=== PATIENT | male | born 1955 | race Caucasian/White ===

== ENCOUNTER 2016-08-31 05:36 | Day surgery (SDC) | payer OTHER ==
--- NOTE | 2016-08-30 13:08 | HP ---
DATE OF CLINIC: 08/18/2016 RALPH ESPOSITO : 1955 PLANNED PROCEDURE: Left Knee Arthroscopic Medial Meniscectomy and Debridement DATE OF PROCEDURE: August 31, 2016 SURGEON: Brendan Power M.D. PCP: Dr. Amanda Sprague HISTORY OF PRESENT ILLNESS Ralph Esposito is a 61 year old male. * Medication list reviewed with patient allergy list reviewed with patient. * Tried NSAIDS Ibuprofen PRN * Tried Physical Therapy [facility], was going once for 6 weeks, currently going every other week now * Tried Injections Cortisone 10/2015 Mr. Esposito is in today pre-operatively for his upcoming left knee arthroscopy with Dr. Power on 08/31/16. Patient presents in good spirits and is ready to proceed. He's had a recent left molar cavity which will require a root canal otherwise no recent illness, change in health, or prior surgical complications. His recent consult with Dr. Power follows: Patient is a 60-year-old male here for consultation with respect to his left knee. He was recently seen by Priyank for evaluation of left knee pain that began acutely in June. History is as follows: The patient twisted his knee and had onset of medial knee pain. He has kind of been dealing with the symptoms since that time. Currently over the last several months he has been having some symptoms where he feels like something flips inside the inner aspect of his knee and catches and has a pain and if he can get it to flip back then his symptoms dissipate. He is not having any significant instability, but does have sensation of distrust. He denies a history with regards to his left knee, but has had right knee symptoms in the past and has seen a Dane Kilpatrick P.A.-C. in 2010 for this. The patient is very active. He is recently retired. He spent many years bicycle commuting. He has now been active outdoors. He just he was doing some rafting down through the [place] and he is at a point in time where despite physical therapy and cortisone injection he is unable to really progress with is activity secondary to his knee pain. The patient has tried non-steroidal anti-inflammatories, ibuprofen. He has been to physical therapy going for a period of over six weeks. He did have per primary care doctors notes a pes anserine cortisone injection, which helped some of his symptoms for a brief period of time but they returned. It did not improve this catching and flipping sensation that he has deep within his knee. He did have an MRI scan on 03/01/16 that was available when Priyank saw him and is available for my review as well. This is consistent with a complex tear of the posterior horn of the medial meniscus. He also has chondromalacia of the patellofemoral joint. Given his persisting symptoms, he is interested in discussing definitive management options. Comorbidities include hypothyroidism. He is a non-smoker. CURRENT MEDICATION * Benadryl Allergy 25 MG Capsule as needed 0 days, 0 refills * Crestor 10 MG Tablet 1 once a day 0 days, 0 refills * [facility] Vitamin B12 1000 MCG Tablet 1 once a day 0 days, 0 refills * Famciclovir 125 MG Tablet 1 once a day 5 days, 0 refills * Levothyroxine Sodium 75 MCG Tablet 1 once a day 90 days, 0 refills * Pantothenic Acid 500 MG Tablet 1 once a day 0 days, 0 refills * Vitaline CoQ10 300 MG Wafer 2 once a day 0 days, 0 refills * Vitamin D3 1000 UNIT Capsule as directed 0 days, 0 refills PAST MEDICAL/SURGICAL HISTORY Reported: Medical: A previous fracture, Reported numbness due to carpal tunnel, Reported tingling due to carpal tunnel, 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 Surgical / Procedural: Prior surgery sinus rhinoplasty/turbo plasty early and Hernia repair July 1978. SOCIAL HISTORY Behavioral: Caffeine use and non-smoker never smoked. Smoking status: Never smoker. Alcohol: Alcohol during summer while on vacation and alcohol use. 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 ALLERGIES * Cats Reaction: Asthma/Shortness of Breath * [place] fruit Reaction: Skin Rashes/Hives, headache, throat burning * Dust Reaction: Asthma/Shortness of Breath * Grass Pollen Reaction: Asthma/Shortness of Breath * Nuts Reaction: Skin Rashes/Hives * Opium Alkaloids Reaction: not effective * penicillin Reaction: Skin Rashes/Hives * [place] Seeds Reaction: Skin Rashes/Hives, swelling of lips FAMILY HISTORY 2 children living Family medical history Mother and Father: Bleeding Disorders REVIEW OF SYSTEMS Systemic: No fever and no recent weight change. Head: No head symptoms. Cardiovascular: No cardiovascular symptoms. Pulmonary: No pulmonary symptoms. Gastrointestinal: Gastrointestinal symptoms GERD. Psychological: No psychological symptoms. Skin: No skin lesions and no rash. PHYSICAL FINDINGS * Vitals taken 08/18/2016 02:54 pm BP-Sitting R 114/70 mmHg 100 - 120/60 - 80 BP Cuff Size Regular Pulse Rate-Sitting 67 bpm 50 - 100 Temp-Oral 97.6 F 96 - 101 Height 69 in 64 - 74 Weight 201 lbs 123 - 215 Body Mass Index 29.7 kg/m2 Body Surface Area 2.07 m2 Pain Level 0 Ears, Nose, Throat: * ENT: normal. Lungs: * Clear to auscultation. Cardiovascular: Heart Rate and Rhythm: * Normal. Abdomen: * Normal. Neurological: Motor: * Dominant Hand = Right Hand. Patient is a well-developed, well-nourished male in no acute distress, normal-appearing mood and affect. He ambulates with a relatively symmetric, heel-to-toe gait. Left knee exam shows skin integrity to be well-preserved, no wounds, rashes or lesions. He does have trace effusion and popliteal fullness. Motion is 0-120 degrees with pain at maximum flexion. He is tender over the medial jointline reproducibly, NT laterally. He has medial pain with Hank's, no click or pop. He has no with patellar compression. NT in the medial retinaculum. NT in the anteromedial proximal tibia. Ligamentous exam is intact for cruciates and collaterals. Calf is soft and NT. Distal light touch sensation and motor function are grossly intact and symmetric. Pulses are palpable. Gentle rotation of the hip is non-irritable. Contralateral knee shows full non-irritable full motion with no periarticular tenderness. TESTS Imaging as above. ASSESSMENT * Acute complex tear of medial meniscus Medial meniscal tear, left knee, with patellar chondromalacia. THERAPY * Patient not eligible for fall risk assessment. PLAN * Arthroscopy of the knee with medial meniscectomy -Left with debridement Discussed with patient in detail the limitations, expectations as well as risks and possible complications of surgery including, but not limited to wound problems or infection, neurovascular injury, continued knee pain or dysfunction including the possibility of failure over time that may require additional operative or non-operative treatment. Patient also realizes the perioperative risks including risks associated with anesthesia and would like to proceed. A full PAR conference was held, questions and concerns addressed and informed consent was obtained. Patient will be sent from my office for completion of the preoperative workup. CARE TEAM Amanda Sprague MD Family Practice CC: Amanda Sprague MD [facility] RS/sg
[2016-08-31] MEDS ORDERED: IV START KIT ONE (06:09)
[2016-08-31] MEDS ORDERED: LACTATED RINGERS 1,000 ML ONE (06:09)
[2016-08-31] MEDS ORDERED: CLINDAMYCIN 900 MG PREMIX 100 ML IV PRN (06:15)
[2016-08-31] MEDS ORDERED: CLINDAMYCIN 900 MG PREMIX 50 ML IV ONE (06:26)
[2016-08-31] MEDS ORDERED: BUPIVACAINE 0.25% EPI PF 30 ML VIAL ONE (06:53)
[2016-08-31] MEDS ORDERED: MORPHINE SULFATE (DURAMORPH) 1 MG/ML 10ML AMP ONE (07:06)
[2016-08-31] MEDS ORDERED: ONDANSETRON 4 MG/2ML 2 ML VIAL ONE (07:12)
[2016-08-31] MEDS ORDERED: PROPOFOL 20 ML IV ONE (07:12)
[2016-08-31] MEDS ORDERED: DEXAMETHASONE SOD PHOS 4 MG/1 ML VIAL ONE (07:12)
[2016-08-31] MEDS ORDERED: EPHEDRINE SULFATE UD SYR 25 MG 25 MG/5 ML SYRINGE IV ONE (07:59)
[2016-08-31] MEDS ORDERED: HYDROMORPHONE HCL 1 MG/ML SYRINGE IV PRN ×2 (08:06→09:22)
[2016-08-31] MEDS ORDERED: ONDANSETRON 4 MG/2ML 2 ML VIAL IV PRN ×2 (08:06→09:22)
[2016-08-31] MEDS ORDERED: PROMETHAZINE HCL 25 MG/ML VIAL IM PRN (08:06)
[2016-08-31] MEDS ORDERED: NALOXONE HCL 0.4 MG/ML VIAL IV PRN (08:06)
[2016-08-31] MEDS ORDERED: ATROPINE SULFATE 0.4 MG/1 ML VIAL IV PRN (08:06)
[2016-08-31] MEDS ORDERED: LACTATED RINGERS 1,000 ML IV SCH (08:15)
[2016-08-31] MEDS ORDERED: KETOROLAC TROMETHAMINE 30 MG/ML 1 ML VIAL ONE (08:28)
--- NOTE | 2016-08-31 08:47 | PCMBPN ---
Brief Post Op Note: Date of Procedure: 08/31/16 Preoperative Diagnosis: left knee MMT chondromalacia left knee Postoperative Diagnosis: 1. [Same] Procedure: scope/MM Surgeon: Brendan Power MD Anesthesia: general ([facility]) Condition: stable to PAR Complications: none IV Fluids: per anesthesia Estimated Blood Loss: nil Tourniquet Time: 0 Drains: none
[2016-08-31] MEDS ORDERED: FENTANYL 100 MCG/2 ML VIAL ONE (09:11)
[2016-08-31] MEDS: FENTANYL 100 MCG/2 ML VIAL IV PRN ×2 (09:13→09:21)
[2016-08-31] MEDS ORDERED: ACETAMINOPHEN 325 MG TABLET PO PRN (09:22)
[2016-08-31] MEDS ORDERED: SODIUM CHLORIDE 0.9% 1,000 ML IV SCH (09:22)
[2016-08-31] MEDS ORDERED: HYDROCODONE/ACETAMINOPHEN 5/325MG TABLET PO PRN (09:22)
--- NOTE | 2016-08-31 09:57 | OP ---
MILES THAPA [id number] : 1955 DATE OF SURGERY: August 31, 2016 PREOPERATIVE DIAGNOSIS: 1. Left knee medial meniscal tear. 2. Chondromalacia, left knee. POSTOPERATIVE DIAGNOSIS: SAME PROCEDURE: Left knee arthroscopic partial medial meniscectomy. SURGEON: Brendan Power M.D. ESTIMATED BLOOD LOSS: Minimal ANESTHESIA: General per [facility] FLUIDS: IV replacement per anesthesia. TOURNIQUET TIME: Zero DRAINS: None COMPLICATIONS: None INDICATION: Patient is a 61-year-old male with clinical and radiographic history most consistent with left knee medial meniscal tear and chondromalacia. They have failed to improve with traditional nonoperative treatments and would like to proceed with elective arthroscopic evaluation and treatment. PAR conference was held, questions and concerns were addressed, and informed consent was obtained. For additional details, please refer to the previously dictated preoperative History and Physical Exam. OPERATIVE FINDINGS: A complete diagnostic knee arthroscopy was performed with the following findings: The suprapatellar pouch was clean. Patellofemoral joint showed some mild II-A changes distal median ridge with some grade I changes mid-trochlea. There was relatively significant medial plica. Medial and lateral gutters were otherwise clean. Medial compartment had grade II-B changes central weightbearing portion of the femoral condyle with surrounding II-A changes. No areas of instability on the tibial surface, but some central grade I and II-A changes. There was a complex degenerative tear of the posterior horn of the medial meniscus extending from the posterior body to the 12:00 position. There was a horizontal component of this. There was a small radial flap at the root with some overlying hypertrophic synovium folded over from the notch. Notch showed intact ACL. The lateral compartment was normal. PROCEDURAL DESCRIPTION: Patient was taken to the operating room. General anesthesia was induced and a laryngeal masked airway was placed. The lower extremity was prepped and draped out in the usual sterile fashion. Examination under anesthesia was normal. After sterile prep and drape the knee was injected with 45 mL of 0.25% Marcaine with epinephrine. A medial suprapatellar and lateral peripatellar portal were initially established followed by a medial peripatellar portal under direct intraarticular visualization. A standard 4.0 mm 30 degree arthroscope was used. An arthroscopic pump system was utilized. A photographic record was made. A complete diagnostic knee arthroscopy was then performed with findings as discussed above. We turned our attention initially to the medial compartment. A combination of arthroscopic shuts and a 3.5 shaver were used to debride the tear back to a stable base smoothing the transition zone medially into the body and posteriorly in the posterior horn. I also removed the small radial flap and the overlying synovium with a 3.5 shaver. We then passed the scope into the patellofemoral articulation and using the 3.5 shaver debrided the hypertrophic plica. Satisfied, after copious irrigation we removed the cannulas and closed the portal sites with interrupted 4-0 Nylon. The knee was injected with approximately 8 cc of PRP, which had been obtained and prepared in the standard fashion. A sterile compression wrap was applied. The patient was then awakened, extubated, transferred to their hospital bed and sent to post anesthesia recovery in stable condition. The patient tolerated the procedure well. Sponge, instrument and needle count were correct. ALICE/pal CC: Cricket Sprague MD
== END 2016-08-31 10:54 | disposition home or self-care (01) ==
LOC: SDC 05:36
PROVIDERS: ATTEND Orthopaedic Surgery
PROC: 0SBD4ZZ Excision of Left Knee Joint, Percutaneous Endoscopic Approach (ICD-10-PCS; principal; 2016-08-31)
DX: S83.232A Complex tear of medial meniscus, current injury, left knee, initial encounter (principal); M22.42 Chondromalacia patellae, left knee; X50.1XXA Overexertion from prolonged static or awkward postures, initial encounter; E03.9 Hypothyroidism, unspecified; K21.9 Gastro-esophageal reflux disease without esophagitis; Z88.5 Allergy status to narcotic agent; Z88.0 Allergy status to penicillin